=== PATIENT | female | born 1990 | race Caucasian/White ===

== ENCOUNTER 2021-12-29 16:00 | Outpatient (RCR) | payer BC ==
[~2021-12-29 16:00] MED LIST: AMBIEN5 MG PO; KLONOPIN 1MG1 MG PO; LAMICTAL; LEVOTHYROXINE PO; MERIDIA; MOTRIN800 MG PO; PHENERGAN 25 TA25 MG PO; PHENERGAN25 MG RC; PLAQUENIL; SYNTHROID0.1 MG PO; ULTRAM50 MG PO
== END 2021-12-30 | disposition still patient (30) ==
LOC: MKS.ESL.OT
DX: R20.0 Anesthesia of skin (principal); R20.2 Paresthesia of skin; Z86.69 Personal history of other diseases of the nervous system and sense organs

== ENCOUNTER 2022-01-28 14:30 | Outpatient (RCR) | payer BC | END 2022-01-30 | disposition home or self-care (01) | LOC: MKS.ESL.OT | DX: R20.2 Paresthesia of skin (principal); R20.0 Anesthesia of skin; Z86.69 Personal history of other diseases of the nervous system and sense organs ==

== ENCOUNTER 2022-02-24 13:45 | Outpatient (RCR) | payer BC | END 2022-03-02 | disposition home or self-care (01) | LOC: MKS.ESL.OT | DX: R20.0 Anesthesia of skin (principal); R20.2 Paresthesia of skin; Z86.69 Personal history of other diseases of the nervous system and sense organs ==

== ENCOUNTER 2022-04-20 15:45 | Outpatient (RCR) | payer BC | END 2022-05-02 | disposition home or self-care (01) | LOC: MKS.ESL.OT | DX: R20.0 Anesthesia of skin (principal); R20.2 Paresthesia of skin; Z86.69 Personal history of other diseases of the nervous system and sense organs ==

== ENCOUNTER 2023-03-30 08:45 | Outpatient (RCR) | payer BC ==
[~2023-03-30 08:45] MED LIST changes: +TORADOL 10MG TA10 MG PO
== END 2023-04-01 | disposition home or self-care (01) ==
LOC: MKS.ESL.PT
DX: Z47.89 Encounter for other orthopedic aftercare (principal); M54.2 Cervicalgia; M54.50 Low back pain, unspecified; M25.521 Pain in right elbow

== ENCOUNTER 2023-03-30 09:30 | Outpatient (RCR) | payer BC | END 2023-04-01 | disposition home or self-care (01) | LOC: MKS.ESL.OT | DX: Z47.89 Encounter for other orthopedic aftercare (principal); G56.22 Lesion of ulnar nerve, left upper limb; M25.532 Pain in left wrist ==

== ENCOUNTER 2023-04-27 12:46 | Emergency (ER) | payer BC ==
[~2023-04-27] VITALS: Ht 162.6 cm; Wt 95.5 kg
[2023-04-27 12:51] VITALS: TEMP 97.9
[2023-04-27 13:08] LABS: COLLECTION METHOD CLEAN CATCH
[2023-04-27 13:39] LABS: BASO # 0.1 K/mm3 (0.0-0.2); BASO % 0.6 % (0.0-2.0); EOS # 0.2 K/mm3 (0.0-0.7); EOS % 1.4 % (0.0-4.0); GRAN # 6.6 K/mm3 (1.4-6.5); GRAN % 63.2 % (42.2-75.2); HEMATOCRIT 42.6 % (37.0-47.0); HEMOGLOBIN 13.9 g/dl (12.5-16.0); LYMPH % 28.3 % (20.0-51.0); MEAN CELL VOLUME 88 fl (80.0-100.0); MEAN CORPUSCULAR HEMOGLOBIN 29 pg (27-31); MEAN CORPUSCULAR HGB CONC 33 g/dl (33.0-37.0); MEAN PLATELET VOLUME 9.1 fl (7.4-10.4); MONO # 0.6 K/mm3 (0.1-0.6); MONO % 5.8 % (1.7-9.3); PLATELET COUNT 202 K/mm3 (130-400); RED BLOOD COUNT 4.84 M/mm3 (4.10-5.30)
[2023-04-27 13:41] LABS: TRICYCLIC ANTIDEPRESS URINE NEGATIVE
[2023-04-27 13:52] LABS: PH 5.5 (5.0-8.5); URINE APPEARANCE Clear (CLEAR/HAZY); URINE BLOOD Negative (NEGATIVE); URINE COLOR Yellow (YELLOW); URINE GLUCOSE Negative (NEGATIVE); URINE KETONE Negative (NEGATIVE); URINE NITRATE Negative (NEGATIVE); URINE PROTEIN(semi-quant) Negative (NEGATIVE); URINE RBC None Seen /hpf (0-2); URINE UROBILINOGEN 0.2 E.U/dL (0.2-1.0)
[2023-04-27 13:52] LABS: ALANINE AMINOTRANSFERASE 15 U/L (0-55); ALBUMIN 4.1 gm/dL (3.5-5.0); ALKALINE PHOSPHATASE 63 U/L (40-150); ANION GAP 11 mmol/L (7-16); AST,SGOT 18 U/L (5-34); BILIRUBIN,TOTAL 0.5 mg/dL (0.2-1.2); BLOOD UREA NITROGEN 10 mg/dL (7-19); CALCIUM 9.3 mg/dL (8.4-10.2); CARBON DIOXIDE 21 mmol/L (22-29); CHLORIDE 107 mmol/L (98-107); CREATININE, serum 0.85 mg/dL (0.57-1.11); GLUCOSE 94 mg/dL (70-99); POTASSIUM 4.5 mmol/L (3.5-4.5); SODIUM 139 mmol/L (136-145); TOTAL PROTEIN 6.6 gm/dL (6.2-8.1)
[2023-04-27 13:53] LABS: SQUAMOUS EPITHELIAL 0-2 /hpf (0-10)
[2023-04-27 13:53] LABS: ALCOHOL(ethanol),MEDICAL < 10 mg/dL (0-10); SALICYLATE < 5.0 mg/dL (15.0-30.0)
[2023-04-27 16:07] VITALS: BP 133/72; PULSE 79
== END 2023-04-27 16:07 | disposition home or self-care (01) ==
LOC: COL.ER 12:46
PROVIDERS: Nurse Practitioner
DX: T42.6X1A Poisoning by other antiepileptic and sedative-hypnotic drugs, accidental (unintentional), initial encounter (principal); G47.00 Insomnia, unspecified

== ENCOUNTER 2023-04-27 23:26 | Emergency (ER) | payer BC ==
[~2023-04-27] VITALS: Ht 172.7 cm; Wt 90.9 kg
[2023-04-28 00:10] LABS: ALANINE AMINOTRANSFERASE 15 U/L (0-55); ALBUMIN 3.9 gm/dL (3.5-5.0); ALKALINE PHOSPHATASE 61 U/L (40-150); ANION GAP 11 mmol/L (7-16); AST,SGOT 21 U/L (5-34); BILIRUBIN,TOTAL 0.3 mg/dL (0.2-1.2); BLOOD UREA NITROGEN 10 mg/dL (7-19); CALCIUM 9.2 mg/dL (8.4-10.2); CARBON DIOXIDE 22 mmol/L (22-29); CHLORIDE 109 mmol/L (98-107); CREATININE, serum 0.84 mg/dL (0.57-1.11); GLUCOSE 101 mg/dL (70-99); MAGNESIUM 2.2 mg/dL (1.6-2.6); POTASSIUM 3.9 mmol/L (3.5-4.5); SODIUM 142 mmol/L (136-145); TOTAL PROTEIN 6.4 gm/dL (6.2-8.1)
[2023-04-28 00:19] LABS: BASO # 0.1 K/mm3 (0.0-0.2); BASO % 0.6 % (0.0-2.0); EOS # 0.2 K/mm3 (0.0-0.7); EOS % 1.6 % (0.0-4.0); GRAN # 7.6 K/mm3 (1.4-6.5); GRAN % 60.6 % (42.2-75.2); HEMATOCRIT 40.8 % (37.0-47.0); HEMOGLOBIN 13.7 g/dl (12.5-16.0); LYMPH % 31.7 % (20.0-51.0); MEAN CELL VOLUME 86 fl (80.0-100.0); MEAN CORPUSCULAR HEMOGLOBIN 29 pg (27-31); MEAN CORPUSCULAR HGB CONC 34 g/dl (33.0-37.0); MEAN PLATELET VOLUME 9.1 fl (7.4-10.4); MONO # 0.6 K/mm3 (0.1-0.6); MONO % 4.9 % (1.7-9.3); PLATELET COUNT 237 K/mm3 (130-400); RED BLOOD COUNT 4.72 M/mm3 (4.10-5.30); REDCELL DISTRIBUTION WIDTH-CV 12.9 % (11.5-14.5)
[2023-04-28 00:20] LABS: ACETAMINOPHEN < 1.0 ug/mL (10-30); ALCOHOL(ethanol),MEDICAL < 10 mg/dL (0-10); SALICYLATE < 5.0 mg/dL (15.0-30.0)
[2023-04-28 06:25] LABS: COLLECTION METHOD CLEAN CATCH
[2023-04-28 06:54] LABS: URINE APPEARANCE Clear (CLEAR/HAZY); URINE BLOOD Negative (NEGATIVE); URINE COLOR Yellow (YELLOW); URINE GLUCOSE Negative (NEGATIVE); URINE KETONE Negative (NEGATIVE); URINE NITRATE Negative (NEGATIVE); URINE PROTEIN(semi-quant) Negative (NEGATIVE); URINE UROBILINOGEN 0.2 E.U/dL (0.2-1.0)
[2023-04-28 06:55] LABS: URINE RBC 0-2 /hpf (0-2)
[2023-04-28 06:58] LABS: TRICYCLIC ANTIDEPRESS URINE NEGATIVE
[2023-04-29 15:51] VITALS: BP 121/57; PULSE 72; TEMP 97.8
== END 2023-04-29 15:30 ==
LOC: COL.ER 23:26
PROVIDERS: Emergency Medicine
DX: T42.6X2A Poisoning by other antiepileptic and sedative-hypnotic drugs, intentional self-harm, initial encounter (principal); S51.812A Laceration without foreign body of left forearm, initial encounter; S51.811A Laceration without foreign body of right forearm, initial encounter; D72.829 Elevated white blood cell count, unspecified; W26.9XXA Contact with unspecified sharp object(s), initial encounter
CPT/HCPCS: J1630; J2060; J2310; J7030; J7512; J7517

== ENCOUNTER 2023-05-16 08:45 | Outpatient (RCR) | payer BC | END 2023-05-31 13:55 | disposition home or self-care (01) | LOC: MKS.ESL.OT 08:45 | DX: Z47.89 Encounter for other orthopedic aftercare (principal); G56.22 Lesion of ulnar nerve, left upper limb ==

== ENCOUNTER 2023-05-18 10:30 | Outpatient (RCR) | payer BC | END 2023-05-31 13:55 | disposition home or self-care (01) | LOC: MKS.ESL.PT 10:30 | DX: Z47.89 Encounter for other orthopedic aftercare (principal); M25.521 Pain in right elbow; M54.2 Cervicalgia; M54.50 Low back pain, unspecified ==